=== PATIENT | male | born 1995 | race Caucasian/White ===

== ENCOUNTER 2019-11-18 22:33 | Emergency (ER) | payer BC, OTHER ==
[~2019-11-18] VITALS: Ht 180.3 cm; Wt 81.7 kg
[2019-11-19] LABS: ABSOLUTE NEUTROPHILS 2.9 thou/uL (1.4-8.2); BASOPHILS 1.2 % (0.0-2.0); EOSINOPHILS 6.6 % (0.0-3.0); HEMATOCRIT 42.9 % (42.0-52.0); HEMOGLOBIN 14.5 gm/dL (14.0-18.0); LYMPHOCYTES 36.2 % (24.0-44.0); MCH 29.9 pg (26.0-34.0); MCHC 33.9 g/dL (28.0-37.0); MCV 88.4 fL (80.0-100.0); MONOCYTES 8.1 % (1.0-8.0); PLATELET COUNT 248 thou/uL (150-400); POLYS 47.9 % (36.0-66.0); RBC 4.85 mil/uL (4.50-6.00); RDW 12.9 % (10.5-14.5)
[2019-11-19 00:01] LABS: CALCIUM 8.7 mg/dL (8.5-10.1); POTASSIUM 3.9 mmol/L (3.5-5.1)
[2019-11-19 01:02] VITALS: BP 122/78
== END 2019-11-19 01:07 | disposition home or self-care (01) ==
LOC: ER 22:33
PROVIDERS: Emergency Medicine
DX: R20.2 Paresthesia of skin (principal); R20.0 Anesthesia of skin; R53.1 Weakness; F17.210 Nicotine dependence, cigarettes, uncomplicated